=== PATIENT | male | born 1975 | race American Indian/Alaskan Native ===

== ENCOUNTER 2021-06-01 21:20 | Emergency (ER) | payer OTHER ==
[2021-06-01] MEDS ORDERED: SODIUM CHLORIDE 0.9% 1000 ML IV SOLN IV ONE (21:55)
[2021-06-01] MEDS ORDERED: SODIUM CHLORIDE 0.9% 1000 ML 1,000 ML IV ONE (22:26)
[2021-06-01] MEDS ORDERED: ONDANSETRON 4 MG/2 ML INJ IV ONE (22:26)
[2021-06-01] MEDS ORDERED: MORPHINE 4 MG/1 ML INJ IV ONE (22:26)
--- NOTE | 2021-06-01 22:26 | XRay Report ---
RIGHT KNEE 4 VIEW(S) INDICATION / CLINICAL INFORMATION: FALL with right knee injury. COMPARISON: None available. FINDINGS: BONES / JOINT(S): Avulsion fracture fragments from the inferior pole of the patella with high riding patella. No significant arthritis. SOFT TISSUES: Moderate anterior soft tissue swelling. Irregularity of the proximal patellar tendon. ADDITIONAL FINDINGS: None. IMPRESSION: 1. Avulsion fracture fragments from the inferior pole of the patella with possible proximal patellar tendon tear. Signer Name: Claus Davis MD Signed: 06/01/2021 10:21 PM Workstation Name: [id number]
--- NOTE | 2021-06-01 22:31 | Emergency Department Report ---
ED Lower Extremity HPI - General Chief Complaint: Extremity Injury, Lower Stated Complaint: RIGHT KNEE PAIN Time Seen by Provider: 06/01/21 22:17 Source: patient Mode of arrival: Ambulatory Limitations: No Limitations - History of Present Illness Initial Comments: Patient is 45-year-old male with previous history of left knee patellar tendon injury and surgery 15 years ago. Patient presented to the ER complaining of right knee pain started all of a sudden while he was dancing. Patient stated that he had a pop sensation. He stated that he is unable to bear weight on it since then. Patient denied any other injuries. Patient denied any chest pain or shortness of breath. MD Complaint: knee injury -: Sudden, This evening Injury: Knee: Right Type of Injury: hyperflexion Place: other Severity: moderate Severity scale (0 -10): 6 Improves With: immobilization Worsens With: movement Associated Symptoms: snap/pop sensation - Related Data Allergies Allergy/AdvReac Type Severity Reaction Status Date / Time No Known Allergies Allergy Unverified 06/01/21 21:32 ED Review of Systems ROS: Stated complaint: RIGHT KNEE PAIN Other details as noted in HPI Comment: All other systems reviewed and negative Constitutional: denies: chills, diaphoresis Respiratory: denies: cough, shortness of breath Cardiovascular: denies: chest pain, palpitations, dyspnea on exertion Gastrointestinal: denies: abdominal pain, nausea, vomiting Musculoskeletal: denies: back pain Neurological: denies: headache, weakness, numbness, paresthesias, confusion ED Past Medical Hx - Past Medical History Previous Medical History?: No - Surgical History Past Surgical History?: No - Social History Smoking Status: Never Smoker Substance Use Type: None ED Physical Exam - General Limitations: No Limitations General appearance: alert, in no apparent distress - Head Head exam: Present: atraumatic, normocephalic, normal inspection - Eye Eye exam: Present: normal appearance - ENT ENT exam: Present: normal exam, normal orophraynx, mucous membranes moist - Neck Neck exam: Present: normal inspection, full ROM. Absent: tenderness, meningismus - Respiratory Respiratory exam: Present: normal lung sounds bilaterally - Cardiovascular Cardiovascular Exam: Present: regular rate, normal rhythm, normal heart sounds - GI/Abdominal GI/Abdominal exam: Present: soft, normal bowel sounds. Absent: distended, tenderness, guarding, rebound, rigid, organomegaly, mass, bruit, pulsatile mass, hernia - Extremities Exam Extremities exam: Present: normal inspection, full ROM, normal capillary refill. Absent: tenderness - Back Exam Back exam: Present: normal inspection, full ROM. Absent: CVA tenderness (R), CVA tenderness (L) - Neurological Exam Neurological exam: Present: alert, oriented X3, CN II-XII intact. Absent: motor sensory deficit - Psychiatric Psychiatric exam: Present: normal mood - Skin Skin exam: Present: warm, intact, normal color ED Course Vital Signs 06/01/21 06/01/21 21:30 22:23 Temperature 98.4 F Pulse Rate 77 77 Respiratory 18 14 Rate Blood Pressure 92/47 Blood Pressure 115/67 [Right] O2 Sat by Pulse 93 99 Oximetry - Orthopedic Splinting/Casting Injury #1 Side: right Lower Extremity Injury Location: knee Lower Extremity Immobilizer: knee immobilizer Other Orthopedic Equipment: crutches ED Lower Extremity MDM - EKG Data -: EKG Interpreted by Ga EKG shows normal: sinus rhythm Rate: normal - EKG Data Interpretation: no acute changes - Radiology Data Radiology results: report reviewed - Medical Decision Making Patient is 45-year-old male with previous history of left knee patellar tendon injury and surgery 15 years ago. Patient presented to the ER complaining of right knee pain started all of a sudden while he was dancing. Patient stated that he had a pop sensation. He stated that he is unable to bear weight on it since then. Patient denied any other injuries. Patient denied any chest pain or shortness of breath. Left knee x-ray showed avulsion fracture of the right patella with disruption of the patellar tendon. Patient given morphine and Zofran. Knee immobilizer david lied patient given crutches advised to follow-up with orthopedics in the next 2 to 3 days and to return to the ER if he develop any new symptoms. Critical care attestation.: If time is entered above; I have spent that time in minutes in the direct care of this critically ill patient, excluding procedure time. ED Disposition Clinical Impression: Patellar tendon avulsion Disposition: DC-01 TO HOME OR SELFCARE Is pt being admited?: No Condition: Stable Instructions: Patellar Tendon Tear Rehab-[facility] Referrals: SAYRA COLMENARES MD [Staff Physician] - 3-5 Days
[2021-06-01 23:00] LABS: Basophils % (Auto) 0.2 % (0.0-1.8); Eosinophils % (Auto) 0.1 % (0.0-4.3); Hematocrit 42.2 % (35.5-45.6); Hemoglobin 14.7 gm/dl (11.8-15.2); Lymphocytes % (Auto) 7.4 % (13.4-35.0); Mean Corpuscular HGB Conc 35 % (32-34); Mean Corpuscular Volume 96 fl (84-94); Monocytes # (Auto) 0.8 K/mm3 (0.0-0.8); Monocytes % (Auto) 5.4 % (0.0-7.3); Platelet Count 247 K/mm3 (140-440); Red Blood Count 4.42 M/mm3 (3.65-5.03)
[2021-06-01 23:23] LABS: Alanine Aminotransferase 22 units/L (7-56); Albumin 4.3 g/dL (3.9-5); BUN/Creatinine Ratio 12; Blood Urea Nitrogen 14 mg/dL (9-20); Calcium 10.8 mg/dL (8.4-10.2); Hemolysis Index 6
[2021-06-01 23:31] VITALS: BP 132/81
--- NOTE | 2021-06-05 11:10 | Electrocardiograph Report ---
[facility] Test Date: 2021-06-01 Test Time: 22:08:49 Pat Name: PORTER HUMPHRIES Department: Room: Gender: M Any [employer]ive[employer]: MARCO : 1975 Requested By: ABDIAZIZ BRAVO Order Number: [id number] Reading MD: Daren Ellington Measurements Intervals [place] Rate: 82 P: 66 OK: 200 QRS: 24 QRSD: 74 T: 18 QT: 322 QTc: 376 Interpretive Statements Sinus rhythm ST elev, probable normal early repol pattern No previous ECG available for comparison Electronically Signed On 06-05-2021 11:09:52 EDT by Daren Ellington
== END 2021-06-02 00:22 | disposition home or self-care (01) ==
LOC: ED 21:20
DX: S86.891A Other injury of other muscle(s) and tendon(s) at lower leg level, right leg, initial encounter (principal); X58.XXXA Exposure to other specified factors, initial encounter; Y93.89 Activity, other specified; Y92.89 Other specified places as the place of occurrence of the external cause; Y99.8 Other external cause status
CPT/HCPCS: 29505; 36415; 73562; 80053; 85025; 93005; 96361; 96374; 96375; 99284; J2270; J2405; J7030